=== PATIENT | female | born 1965 | race Caucasian/White ===

== ENCOUNTER 2017-02-14 23:31 | Emergency (ER) | payer BC, OTHER ==
[2017-02-15] MEDS ORDERED: SUBLIMAZE 100 MCG/2 ML IV ONE (00:07)
[2017-02-15] MEDS ORDERED: Sodium Chloride 0.9% 1000 ML 1,000 ML IV SCH (00:15)
[2017-02-15] MEDS ORDERED: SUBLIMAZE 100 MCG/2 ML ONE ×2 (00:18→00:30)
[2017-02-15] MEDS ORDERED: Sodium Chloride 0.9% 1000 ML 0 ML ONE (00:18)
--- NOTE | 2017-02-15 00:22 | ERPHSYRPT ---
- History of Present Illness Time Seen by Provider: 02/14/17 23:57 Source: patient Patient Subjective Stated Complaint: Pt reports that she was at work on night and was pushing a cart and ran into a pallet of toys. Pt reports pain in the right side that radiates into right back. Reports that she has tried multiple OTC medications without relief. Triage Nursing Assessment: Pt alert, oriented, answers all questions appropriately. Skin pink, warm, dry. Resps non-labored. Pt ambulatory to tx room , steady gait noted. No obvious bruising or deformity noted. Physician History: CC: right flank/abd pain Hx: 51 y/o patient of Dr Mya Gusman. She works at [employer] in [place]. At work 5 days ago () she was pushing a cart and it ran into a pallet. She was eliane and thinks she struck her right side. She has pain since. The pain is in right flank, right abdomen, and right hip area. Normal urination. No vomiting. Ate normally. Prior cholecystectomy. Pain moderate. Took OTC meds. Severity: moderate Allergies/Adverse Reactions: miconazole [From Monistat 7] Adverse Reaction (Verified 02/14/17 23:54) Immunizations Up to Date: Yes - Review of Systems Constitutional: No Fever, No Chills Eyes: No Symptoms Ears, Nose, & Throat: No Symptoms Respiratory: No Symptoms Cardiac: No Chest Pain Abdominal/Gastrointestinal: Abdominal Pain (right), No Nausea, No Vomiting, No Diarrhea Musculoskeletal: Back Pain (right) All Other Systems: Reviewed and Negative - Past Medical History Pertinent Past Medical History: Yes Cardiac History: Hypertension Endocrine Medical History: Diabetes Type II - Past Surgical History Gastrointestinal: Cholecystectomy - Social History Smoking Status: Never smoker Exposure to second hand smoke: No Patient Lives Alone: No - Female History Hx Last Menstrual Period: post-menopausal Hx Now: No - Nursing Vital Signs Nursing Vital Signs: Initial Vital Signs Temperature 98.5 F 02/14/17 23:44 Pulse Rate 90 02/14/17 23:44 Respiratory Rate 20 02/14/17 23:44 Blood Pressure 154/118 02/14/17 23:44 O2 Sat by Pulse Oximetry 95 02/14/17 23:44 Pain Scale Pain Intensity 8 - Physical Exam General Appearance: alert, obese, other (pleasant lady) Eye Exam: PERRL/EOMI Ears, Nose, Throat Exam: moist mucous membranes Neck Exam: normal inspection, non-tender, supple Respiratory Exam: normal breath sounds, lungs clear Cardiovascular Exam: regular rate/rhythm Gastrointestinal/Abdomen Exam: soft, tenderness (right sided moreso lower), guarding, No distention, No ecchymosis Back Exam: normal inspection, point tenderness (right back), No vertebral tenderness Extremity Exam: normal inspection, normal range of motion Neurologic Exam: alert, oriented x 3, cooperative Skin Exam: warm, dry, No rash SpO2 Interpretation: normal SpO2: 95 Oxygen Delivery: Room Air - Course Nursing assessment & vital signs reviewed: Yes - CT Exams abd/pelvis CT Interpretation: Negative, Tele-radiologist Report Ordered Tests: Active Orders 24 hr Category Date Time Status Clean Catch Urine Specimen STAT Care 02/15/17 00:07 Active IV Insertion STAT Care 02/15/17 00:07 Active NPO (ED) STAT Care 02/15/17 00:07 Active ABDOMEN AND PELVIS W/0 CONTRAS [CT] Stat Exams 02/15/17 00:07 Taken CBC W DIFF Stat Lab 02/15/17 00:45 Completed CMP Stat Lab 02/15/17 00:45 Completed CULTURE,URINE Stat Lab 02/15/17 01:25 Received UA W/ MICROSCOPIC Stat Lab 02/15/17 01:25 Completed Medication Summary Generic Name Dose Route Start Last Admin Trade Name Freq PRN Reason Stop Dose Admin Sodium Chloride 1,000 mls @ 100 mls/hr 02/15/17 00:15 02/15/17 00:49 Sodium Chloride 0.9% 1000 Ml IV 03/17/17 00:14 100 mls/hr .Q10H TO Administration Discontinued Medications Generic Name Dose Route Start Last Admin Trade Name Freq PRN Reason Stop Dose Admin Fentanyl Citrate 50 mcg 02/15/17 00:07 02/15/17 00:50 Sublimaze 100 Mcg/2 Ml IV 02/15/17 00:08 50 mcg STAT ONE Administration Fentanyl Citrate Confirm 02/15/17 00:18 Sublimaze 100 Mcg/2 Ml Administered 02/15/17 00:19 Dose 100 mcg .ROUTE .STK-MED ONE Fentanyl Citrate Confirm 02/15/17 00:30 Sublimaze 100 Mcg/2 Ml Administered 02/15/17 00:31 Dose 100 mcg .ROUTE .STK-MED ONE Lab/Rad Data: Laboratory Result Diagrams 02/15/17 00:45 02/15/17 00:45 Laboratory Results 02/15/17 02/15/17 02/15/17 Range/Units 01:25 00:45 00:45 WBC 10.0 (4.0-10.5) K/mm3 RBC 5.45 H (4.1-5.4) M/mm3 Hgb 14.8 (12.0-16.0) gm/dl Hct 45.8 (35-47) % MCV 84.0 (78-100) fl MCH 27.1 (26-32) pg MCHC 32.3 (32-36) g/dl RDW 13.1 (11.5-14.0) % Plt Count 249 (150-450) K/mm3 MPV 11.1 H (6-9.5) fl Gran % 76.2 H (36.0-66.0) % Lymphocytes % 15.3 L (24.0-44.0) % Monocytes % 6.9 (0.0-12.0) % Eosinophils % 1.1 (0.00-5.0) % Basophils % 0.5 (0.0-0.4) % Basophils # 0.05 (0-0.4) Sodium 139 (136-145) mEq/L Potassium 4.5 (3.5-5.1) mEq/L Chloride 101 (98-107) mEq/L Carbon Dioxide 28.3 (21-32) mEq/L Anion Gap 14.6 (5-15) MEQ/L BUN 18 (9-20) mg/dL Creatinine 1.10 (0.55-1.30) mg/dl Estimated GFR 55 ML/MIN Glucose 275 H (70-110) MG/DL Calcium 9.7 (8.5-10.1) mg/dL Total Bilirubin 0.30 (0.2-1.0) mg/dL AST 15 (15-37) U/L ALT 39 (12-78) U/L Alkaline Phosphatase 105 (46-116) U/L Serum Total Protein 8.0 (6.4-8.2) gm/dL Albumin 4.2 (3.4-5.0) g/dL Ur Collection Type CLEAN CATCH Urine Color LT.YELLOW (YELLOW) Urine Appearance CLEAR (CLEAR) Urine pH 5.0 (5-6) Ur Specific [place] 1.010 (1.005-1.025) Urine Protein NEGATIVE (Negative) Urine Ketones NEGATIVE (NEGATIVE) Urine Blood NEGATIVE (0-5) Sd/ul Urine Nitrite POSITIVE (NEGATIVE) Urine Bilirubin NEGATIVE (NEGATIVE) Urine Urobilinogen NORMAL (0-1) mg/dL Ur Leukocyte Esterase NEGATIVE (NEGATIVE) Urine Microscopic WBC 2-5 (0-5) /HPF Ur Epithelial Cells FEW (FEW) /HPF Urine Bacteria MANY (NEGATIVE) /HPF Urine Culture Reflexed YES (NO) Urine Glucose 1000 (NEGATIVE) mg/dL Specimen Received 02/15/17 0125 - Progress Progress Note: 02/15/17 00:[address] to assess for renal stone disease. 02/15/17 01:56 She has some pain that suggests contusion but no eccymosis or specific tenderness present. She does have UTI. She has known DM. Rx bactrim, APAP, and follow up with off health or family doctor. Counseled pt/family regarding: lab results, diagnosis, need for follow-up, rad results - Departure Time of Disposition: 01:57 Departure Disposition: Home Clinical Impression: right abdominal contusion UTI (urinary tract infection) Qualifiers: Urinary tract infection type: acute cystitis Hematuria presence: without hematuria Qualified Code(s): N30.00 - Acute cystitis without hematuria Condition: Stable Critical Care Time: No Referrals: RAYO GUSMAN [Primary Care Provider] - Instructions: Contusion, Hyperglycemia -- Adult, Urinary Tract Infection (UTI) Additional Instructions: Rx bactrim for UTI. Ice packs or warm packs for comfort. Use tylenol=acetaminophen 650mg every 4-6 hours for pain as needed. Follow up with occupational health or Dr Mya Gusman in 1 day. Prescriptions: Smz/Tmp Ds Tablet [Bactrim Ds Tablet] 1 udtab PO BID #14 tablet
[2017-02-15] MEDS ORDERED: Sodium Chloride 0.9% 1000 ML 1,000 ML ONE (00:30)
[2017-02-15 00:57] LABS: BASOPHIL % 0.5 % (0.0-0.4); Eosinophil % 1.1 % (0.00-5.0); Granulocytes % 76.2 % (36.0-66.0); Lymphocytes % 15.3 % (24.0-44.0); Mean Platelet Volume 11.1 fl (6-9.5); Monocytes % 6.9 % (0.0-12.0); Platelet Count 249 K/mm3 (150-450); Red Blood Count 5.45 M/mm3 (4.1-5.4); Red Cell Distribution Width 13.1 % (11.5-14.0)
[2017-02-15 01:02] LABS: Mean Corpuscular Hemoglobin 27.1 pg (26-32)
[2017-02-15 01:17] LABS: ALBUMIN 4.2 g/dL (3.4-5.0); ANION GAP 14.6 MEQ/L (5-15); BILIRUBIN,TOTAL 0.3 mg/dL (0.2-1.0); Carbon Dioxide 28.3 mEq/L (21-32); Potassium 4.5 mEq/L (3.5-5.1)
[2017-02-15 01:47] LABS: Collection Type CLEAN CATCH; Glucose 1000 mg/dL (NEGATIVE); Leukocyte Esterase NEGATIVE (NEGATIVE)
[2017-02-15 01:48] LABS: Bilirubin NEGATIVE (NEGATIVE); Blood NEGATIVE Ery/ul (0-5); COMPLETE URINE MICROSCOPIC? YES
[2017-02-15 01:50] LABS: ADD URINE CULTURE? YES (NO); Bacteria MANY /HPF (NEGATIVE); Epithelial Cells FEW /HPF (FEW)
[2017-02-15] MEDS ORDERED: BACTRIM DS TABLET PO ONE ×2 (02:01→02:04)
[2017-02-15 02:21] VITALS: BP 140/81; PULSE 87; O2SAT 98
--- NOTE | 2017-02-15 09:12 | XRAY ---
Indication: Right flank pain. Multiple contiguous axial images obtained through the abdomen and pelvis without contrast as ordered. Comparison: None Lung bases essentially clear. Heart is not enlarged. Small hiatal hernia. Noncontrasted stomach and bowel loops appear nonobstructed. Normal appendix. Minimal descending/sigmoid diverticulosis. No free fluid/air. Mild fatty liver. Previous cholecystectomy. Remaining liver, pancreas, spleen, adrenal glands, kidneys, ureters, bladder, uterus, and aorta appear unremarkable for noncontrast exam. Osseous structures intact with mild degenerative changes throughout the spine. There is a moderate-sized midline supraumbilical ventral hernia with herniation of omental fat. Impression: 1. Fatty liver and colonic diverticulosis. 2. No acute intra-abdominal/pelvic abnormalities on this noncontrast exam. 3. Incidental small hiatal hernia and fatty supraumbilical ventral hernia. Comment: Preliminary interpretation was made by [facility]. No discrepancy. CT DI 23.68
== END 2017-02-15 02:25 | disposition home or self-care (01) ==
LOC: ED 23:31
DX: N30.00 Acute cystitis without hematuria (principal); S30.1XXA Contusion of abdominal wall, initial encounter; W22.8XXA Striking against or struck by other objects, initial encounter; Y92.512 Supermarket, store or market as the place of occurrence of the external cause; Y99.0 Civilian activity done for income or pay
CPT/HCPCS: 36000; 36415; 74176; 80053; 81000; 85025; 87077; 87086; 87186; 96360; 96361; 96374; 99284; J3010; A9270-GY

== ENCOUNTER 2023-03-12 16:17 | Emergency (ER) | payer BC, OTHER ==
[2023-03-12 16:45] VITALS: BP 136/81; PULSE 87; RESP 18; TEMP 97.6; O2SAT 98
[2023-03-12] MEDS ORDERED: TORAdol 30 mg Injection IM ONE (16:53)
[2023-03-12] MEDS ORDERED: Norflex 60 MG/2 ML IM ONE (16:53)
[2023-03-12] MEDS ORDERED: Norflex 60 MG/2 ML ONE (16:55)
[2023-03-12] MEDS ORDERED: TORAdol 30 mg Injection ONE (16:55)
--- NOTE | 2023-03-12 17:58 | XRAY ---
CLINICAL HISTORY:pain COMPARISON:None TECHNIQUE:Thin axial CT of the cervical spine was performed with sagittal and coronal reconstructions without contrast. FINDINGS: Alignment and osseous structures: Reversal of the cervical curve denoting neck muscle spasm. Spondylotic changes of the cervical spine with multiple anterior osteophytic lippings. Normal thickness of the prevertebral soft tissues. The vertebral bodies are normal in height. No lytic or sclerotic bone lesion. The craniovertebral measures are unremarkable. Intervertebral disc spaces: Normal disc height is noted apart from mild anterior wedging at C4-C5. Level by Level analysis: C2-C3: No central canal or neuroforaminal stenosis. C3-C4: No central canal or neuroforaminal stenosis. C4-C5: No central canal or neuroforaminal stenosis. C5-C6: No central canal or neuroforaminal stenosis. C6-C7: No central canal or neuroforaminal stenosis. IMPRESSION: Reversal of the cervical curve possibly due to neck muscle spasm. Spondylotic changes of the cervical spine with multiple anterior osteophytic lippings. Normal disc height is noted apart from mild anterior wedging at C4-C5. No cervical stenosis nor significant forminal compromise as per this CT study. MRI is recommended to further delineate any disc pathology and neural encroachment. Electronically Signed by: Kena Ames MD. (03/12/2023 17:53:32 EST)
--- NOTE | 2023-03-12 18:14 | ERPHSYRPT ---
- History of Present Illness Time Seen by Provider: 03/12/23 16:34 Source: patient Exam Limitations: no limitations Patient Subjective Stated Complaint: Left shoulder injury Triage Nursing Assessment: Patient ambulated back to ED and transferred self to bed. Patient A+O X3. Patient's skin pink, warm and dry. Patient complains of left sided shoulder and neck pain 10/27. 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 Patient states she swung the bag over her left shoulder and threw in the trash. 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 No visible injuries or bruising noted. Physician History: 57 years old right-handed dominant female presented in the ER with chief complaint of neck and left shoulder pain sudden onset when she was throwing trash bags each about 10 to 15 pounds while at work this morning around 5 AM. Patient reports sudden onset pain in the neck with some radiation to the left shoulder and now having mild radiation to the right 1 as well. Denies any numbness tingling or weakness of upper extremities. Pain in the neck is moderate to severe sharp, exacerbated with movements and palpation. No restricted range of motion of the shoulder and neck. Denies any headache. Denies any history of neck pains in the past. 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 - Vaccination Dates Dates if Unknown: na - Review of Systems Constitutional: No Symptoms Eyes: No Symptoms Ears, Nose, & Throat: No Symptoms Respiratory: No Symptoms Cardiac: No Symptoms Abdominal/Gastrointestinal: No Symptoms Genitourinary Symptoms: No Symptoms Musculoskeletal: Neck Pain, Joint Pain Skin: No Symptoms Neurological: No Symptoms Endocrine: No Symptoms Hematologic/Lymphatic: No Symptoms - Past Medical History Pertinent Past Medical History: Yes Cardiac History: Hypertension Endocrine Medical History: Diabetes Type II - Past Surgical History Gastrointestinal: Cholecystectomy - Social History Smoking Status: Never smoker Exposure to second hand smoke: No Drug Use: none Patient Lives Alone: No - Nursing Vital Signs Nursing Vital Signs: Initial Vital Signs Blood Pressure 136/81 03/12/23 16:37 Pain Scale Pain Intensity 8 - Physical Exam General Appearance: no apparent distress, alert Eye Exam: PERRL/EOMI Ears, Nose, Throat Exam: normal ENT inspection, TMs normal, pharynx normal Neck Exam: normal inspection, supple, full range of motion, midline tenderness, other (Bilateral sternomastoid and trapezius tenderness. Mild midline tenderness. Tenderness along left trapezius laterally and also around shoulder joint area. Intact range of motion of both shoulders. Intact range of motion of neck. Negative neuro exam in upper extremities.) Respiratory Exam: normal breath sounds, lungs clear, No chest tenderness Cardiovascular Exam: regular rate/rhythm, normal heart sounds Extremity Exam: normal inspection, normal range of motion, tenderness Neurologic Exam: alert, oriented x 3, cooperative, veterinarian laboratory animal care II-XII nml as tested, normal mood/affect, nml cerebellar function, nml station & gait, sensation nml, No motor deficits Skin Exam: normal color SpO2 Interpretation: normal SpO2: 98 O2 Delivery: Room Air Ordered Tests: Active Orders 24 hr Category Date Time Status CERVICAL SPINE WO CONTRAST [CT] Stat Exams 03/12/23 17:08 Completed Medication Summary Discontinued Medications Generic Name Dose Route Start Last Admin Trade Name Freq PRN Reason Stop Dose Admin Ketorolac Tromethamine 30 mg 03/12/23 16:53 03/12/23 16:56 Ketorolac Tromethamine 30 Mg/Ml Inj IM 03/12/23 16:54 30 mg STAT ONE Administration Ketorolac Tromethamine Confirm 03/12/23 16:55 Ketorolac Tromethamine 30 Mg/Ml Inj Administered 03/12/23 16:56 Dose 30 mg .ROUTE .STK-MED ONE Orphenadrine Citrate 60 mg 03/12/23 16:53 03/12/23 16:56 Orphenadrine Citrate 60 Mg/2 Ml Vial IM 03/12/23 16:54 60 mg STAT ONE Administration Orphenadrine Citrate Confirm 03/12/23 16:55 Orphenadrine Citrate 60 Mg/2 Ml Vial Administered 03/12/23 16:56 Dose 60 mg .ROUTE .STK-MED ONE - Progress Progress: improved, re-examined Progress Note: 03/12/23 18:12 57 years old is evaluated in ER for neck pain with radiation to the shoulders more on the left as compared to right. No chest pain. Pain started immediately after she threw multiple bags of trash while at work this morning. Negative neuro exam in upper extremities. No restricted range of motion in the shoulders and neck. I have obtained CT cervical spine which is negative for fracture or subluxation but does have muscle spasms. I believe patient has cervical strain, she is given Toradol and Norflex, on reevaluation she is feeling much better. Recommended continue with Flexeril and NSAIDs to go home and outpatient follow- up. Discussed signs symptoms of worsening needing return to ER which she seems understanding. Stable for discharge. She does not have any shoulder bony tenderness, do not think needs imaging of shoulder and is more of a radicular pain. Counseled pt/family regarding: diagnosis, need for follow-up, rad results Medical Desision Making - Diagnostic Testing Diagnostic test were ordered, analyzed, and reviewed by me: Yes Radiological Interpretation: Reviewed by me, Teleradiologist Report - Risk of complications The pt has a mod risk of morbidity or mortality based on: Need for prescription drug management - Departure Departure Disposition: Home Clinical Impression: Cervical strain, acute Condition: Stable Critical Care Time: No Referrals: KHUSHI ARAMBULA MD [Primary Care Provider] - Follow up with PCP 2 days Instructions: Cervical Muscle Strain (DC) Additional Instructions: Take Tylenol/ibuprofen as needed. Follow-up with primary care for reevaluation. Intermittent ice application. Avoid exertional activities. Return to ER for intractable neck pain, difficulty/restricted range of motion in the neck/shoulder, numbness tingling weakness of extremities etc. Prescriptions: Ibuprofen 600 mg PO Q6HPRN PRN 10 Days #20 tablet PRN Reason: Pain Cyclobenzaprine HCl 10 mg [Flexeril 10 MG] 10 mg PO TID #20 tablet
[2023-03-12] MEDS ORDERED: Cyclobenzaprine 10 MG ONE (18:20)
[2023-03-12] MEDS ORDERED: Cyclobenzaprine 10 MG PO SCH (22:00)
== END 2023-03-12 18:36 | disposition home or self-care (01) ==
LOC: ED 16:17
DX: S16.1XXA Strain of muscle, fascia and tendon at neck level, initial encounter (principal); X50.0XXA Overexertion from strenuous movement or load, initial encounter; Y92.512 Supermarket, store or market as the place of occurrence of the external cause; Y99.0 Civilian activity done for income or pay; M25.512 Pain in left shoulder; I10 Essential (primary) hypertension; E11.9 Type 2 diabetes mellitus without complications
CPT/HCPCS: 72125; 96372; 99283; J1885; J2360; A9270-GY